=== PATIENT | male | born 1955 | race Caucasian/White ===

== ENCOUNTER 2019-09-06 22:11 | Inpatient (IN) | payer MEDICARE, OTHER ==
[~2019-09-06] VITALS: Ht 175.3 cm; Wt 75.3 kg
--- NOTE | 2019-09-06 22:18 | NUR ---
ER DOC AT BEDSIDE.
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
--- NOTE | 2019-09-06 23:00 | NUR ---
1:1 JOSE R SITTER AT BEDSIDE
--- NOTE | 2019-09-06 23:01 | NUR ---
PT TAKEN FOR CT SCAN.
[2019-09-06 23:10] LABS: BASOPHILS % (AUTO) 0.5 % (0.0-2.0); EOSINOPHILS # (AUTO) 0.1 K/uL (0.0-0.7); EOSINOPHILS % (AUTO) 0.8 % (0.0-7.0); HEMATOCRIT 44.9 % (36.7-47.1); LYMPHOCYTES # (AUTO) 1.3 K/uL (20.0-40.0); LYMPHOCYTES % (AUTO) 17.7 % (20.5-51.5); MEAN CORPUSCULAR HEMOGLOBIN 31.3 uug (23.8-33.4); MEAN CORPUSCULAR HGB CONC 33 g/dL (32.5-36.3); MEAN CORPUSCULAR VOLUME 93.6 fL (73.0-96.2); MONOCYTES # (AUTO) 0.6 K/uL (2.0-10.0); MONOCYTES % (AUTO) 8.5 % (0.0-11.0); NEUTROPHILS # (AUTO) 5.4 K/uL (1.8-8.9); NEUTROPHILS % (AUTO) 72.5 % (38.5-71.5); PLATELET COUNT (AUTO) 234 K/uL (152-348); RED BLOOD CELL COUNT(AUTO) 4.79 MIL/uL (4.06-5.63); WHITE BLOOD COUNT (AUTO) 7.4 K/uL (3.6-10.2)
--- NOTE | 2019-09-06 23:13 | NUR ---
PT BACK FROM CT .SITTER AND SISTER AT BEDSIDE.
[2019-09-06 23:19] LABS: CARBON DIOXIDE 28 mmol/L (21-32); CHLORIDE 106 mmol/L (98-107); CREATININE 0.9 mg/dL (0.6-1.3); GLUCOSE 95 mg/dL (74-106); POTASSIUM 3.5 mmol/L (3.5-5.1); UREA NITROGEN, BLOOD 15 mg/dL (7-18)
[2019-09-06 23:27] LABS: THYROID STIMULATING HORMONE 8.695 mIU/mL (0.358-3.740)
--- NOTE | 2019-09-07 00:10 | NUR ---
PAGED EPIC DOC FITNESS SERVICES MANAGER.
--- NOTE | 2019-09-07 01:13 | NUR ---
gave report to Lucio SCHAEFFER at Med Surg room 323.
--- NOTE | 2019-09-07 01:45 | NUR ---
Transported pt to med surg floor accompanied by sister.
[2019-09-07] MEDS ORDERED: MAGNESIUM HYDROXIDE 30 ML LIQUID UDC PO PRN (02:00)
[2019-09-07] MEDS ORDERED: BLOOD SUGAR DIAGNOSTIC 1 EACH STRIP VI ONE (02:00)
[2019-09-07] MEDS ORDERED: MAG HYDROX/AL HYDROX/SIMETH 30 ML LIQUID UDC PO PRN (02:00)
[2019-09-07 02:07] VITALS: BP 127/73
--- NOTE | 2019-09-07 03:01 | NUR ---
coping skills assessed; pt unable to evaluate due to AMS Addendum: 09/07/19 at 0302 by NICHOLE STEPHENSON RN Amended: Links added.
[2019-09-07 07:08] VITALS: BP 116/55
--- NOTE | 2019-09-07 07:30 | NUR ---
Received patient asleep with 1:1 sitter for safety. Patient shows no signs or symptoms of distress at this time. No signs or pain. Will continue to monitor.
[2019-09-07] MEDS: CLONAZEPAM 0.5 MG TABLET PO PRN ×3 (09:40→20:35)
--- NOTE | 2019-09-07 13:42 | NUR ---
Social Work Family Contact: jordan worker contacted patient's Dewey ([phone]) to gather collateral. This tag writer discussed treatment plan and discharge plan. PerDewey she is the DPOA and will send this tag writer the documentation.
--- NOTE | 2019-09-07 13:42 | NUR ---
Social Work Initial Discharge Plan: [place] [address]; . This publications writer spoke with Dionne ([phone]) who stated that she is unsure if they will accept patient, but will get back to this publications writer with an answer. Per patient's Dewey ([phone]) stated that she would want patient back there. farmworker brooder farm will work with the MD regarding appropriate discharge planning. farmworker brooder farm will form a safe and proper discharge.
--- NOTE | 2019-09-07 14:31 | NUR ---
Social Work Coordination of Care: soap worker spoke to wellness coordination Makenzie ([phone]) who stated that she is unsure if they will accept patient, but will get back to this editorial writer with an answer. Per Makenzie, she stated that Dionne the director will contact this editorial writer.
[2019-09-07] MEDS: ACETAMINOPHEN 325 MG TABLET PO PRN (14:41)
[2019-09-07 14:52] VITALS: BP 131/66
--- NOTE | 2019-09-07 17:54 | NUR ---
Patient will be transfer to MHU Room 145B, gave report to Arnulfo.
--- NOTE | 2019-09-07 18:50 | NUR ---
Received patient in stable condition accompanied by RN. Received report from MAKSIM Tong. Patient is alert and oriented to his name only. Oriented to the mental health unit, today's date, and time. Patient admitted on a 5150 hold for GD for increased agitation and unmanageable behavior from board and care. Patient's belongings removed and placed in contraband locker.
[2019-09-07 20:23] VITALS: BP 128/62
[2019-09-07] MEDS: SENNOSIDES/DOCUSATE SODIUM TABLET PO SCH (21:30)
[2019-09-08 08:30] VITALS: BP 116/51
[2019-09-08] MEDS: DIVALPROEX 250 MG TABLET.DR PO SCH ×2 (09:00→09:10)
[2019-09-08] MEDS: RIVASTIGMINE TARTRATE 1.5 MG CAPSULE PO SCH ×2 (09:10→20:04)
--- NOTE | 2019-09-08 09:59 | NUR ---
Social Work Coordination of Care: oven worker attempted to contact Dionne Director from [facility] ([phone]) and left a voicemail to return this writers call back.
--- NOTE | 2019-09-08 10:27 | NUR ---
Social Work Individual Therapy: youth accommodation support worker met with patient for brief counseling to address patients aggressive and combative behavior. Patient is not cooperative with this writer editor and is unable to have a meaningful conversation. Patient presents to be confused and disorganized, he constantly states "where am I" or "where is my room". However, at this moment patient has been calm and cooperative.
[2019-09-08] MEDS: DIVALPROEX SPRINKLE 125 MG CAP.SPRINK PO SCH ×2 (13:02→20:05)
[2019-09-08] MEDS: CLONAZEPAM 0.5 MG TABLET PO PRN ×2 (14:11→20:04)
--- NOTE | 2019-09-08 14:30 | NUR ---
Social Work Coordination of Care: fiber worker attempted to contact Dionne Director from [facility] ([phone]) stated that patient is welcomed back upon discharge.
[2019-09-08 15:22] VITALS: BP 105/60
[2019-09-08] MEDS: SENNOSIDES/DOCUSATE SODIUM TABLET PO SCH (20:06)
[2019-09-08 20:13] VITALS: BP 116/74
[2019-09-09] MEDS: TEMAZEPAM 7.5 MG CAPSULE PO PRN ×2 (00:15→22:23)
--- NOTE | 2019-09-09 06:27 | NUR ---
Received Pt sitting in jered chair in the hallway. Remains confused, disoriented, and disorganized and requires frequent redirection. Patient had some episodes of agitation and anxiety, Clonazepam 0.5mg given as ordered, minimally effective. Restoril 7.5mg administered for insomnia, which was only moderately effective. Pt awoke with sporadically restless and attempting to get out of bed despite safety instructions given by staff. Pt kept close to nursing station for direct observation. Denies pain, VS stable.
[2019-09-09 07:30] VITALS: BP 128/54
[2019-09-09] MEDS: RIVASTIGMINE TARTRATE 1.5 MG CAPSULE PO SCH ×2 (08:21→20:55)
[2019-09-09] MEDS: CLONAZEPAM 0.5 MG TABLET PO PRN (08:22)
[2019-09-09] MEDS: DIVALPROEX SPRINKLE 125 MG CAP.SPRINK PO SCH ×2 (08:22→20:55)
--- NOTE | 2019-09-09 15:55 | NUR ---
Received Pt sitting in jered chair in the hallway. Remains confused, disoriented, and disorganized and requires frequent redirection.patient enjoyed music group therapy, compliant with medication, patient calm and cooperative, visited by his
[2019-09-09 16:00] VITALS: BP 126/73
[2019-09-09 20:45] VITALS: BP 132/64
[2019-09-09] MEDS: SENNOSIDES/DOCUSATE SODIUM TABLET PO SCH (20:55)
--- NOTE | 2019-09-10 06:03 | NUR ---
GPS: Remains confused, disoriented, and disorganized and requires frequent redirection. compliant with medication, patient calm and cooperative, assisted with adl's.
--- NOTE | 2019-09-10 06:39 | NUR ---
slept 6:30 hrs through the night.
[2019-09-10 07:30] VITALS: BP 127/86
[2019-09-10] MEDS: RIVASTIGMINE TARTRATE 1.5 MG CAPSULE PO SCH ×2 (08:15→20:22)
[2019-09-10] MEDS: DIVALPROEX SPRINKLE 125 MG CAP.SPRINK PO SCH ×2 (08:15→20:22)
--- NOTE | 2019-09-10 12:57 | NUR ---
Received patient awake, alert and oriented to name only sitting in chair in dining room. Patient is disoriented and confused, requires redirection and reality orientation to time, date, and place. Patient is encouraged to verbalize his needs to staff, educated about impulse control.
--- NOTE | 2019-09-10 15:44 | NUR ---
Patient sitting in the hallway in chair, awake, alert and oriented to person only. Patient is laughing, speaking to himself and unknown others. When asked who patient is speaking to, he is unable to verbalize. patient provided with reality orientation. Will continue to monitor.
[2019-09-10 16:00] VITALS: BP 114/69
--- NOTE | 2019-09-10 19:00 | NUR ---
PATIENT ALERT BUT CONFUSED AND DISORIENTED. PATIENT ABLE TO ANSWER SIMPLE QUESTIONS, NO COMPLAINS OF PAIN AT THIS TIME. PATIENT WITH RESTLESS RISK FOR FALL AND INJURY, PATIENT SEATED AT CHAIR CLOSED TO NURSING STATION FOR FREQUENT VISUAL CHECK.
[2019-09-10 20:00] VITALS: BP 131/63
[2019-09-10] MEDS: SENNOSIDES/DOCUSATE SODIUM TABLET PO SCH (20:22)
--- NOTE | 2019-09-10 22:00 | NUR ---
PATIENT WIDE AWAKE UNABLE TO SLEEP, MEDICATED PATIENT WITH SLEEPING MEDS, ORDERED, CONT TO MONITOR.
[2019-09-10] MEDS: TEMAZEPAM 7.5 MG CAPSULE PO PRN (22:08)
--- NOTE | 2019-09-11 00:37 | NUR ---
PATIENT STILL AWAKE, PATIENT WAS PLACED BACK TO BED BUT CLIMBS OUT OF BED, RISK FOR FALL AND INJURY. PATIENT WAS KEPT CLEAN, DRY, OFFERED FOOD, AND TOILETING, BUT NOT EFFECTIVE PLACE BACK ON CHAIR, PLACE CLOSE TO NURSING STATION FOR VISUAL CHECK.
--- NOTE | 2019-09-11 06:57 | NUR ---
PATIENT AWAKE, SLEPT FOR FOUR HOURS ONLY, KEPT CLEAN AND DRY, CONT TO MONITOR.
[2019-09-11 07:30] VITALS: BP 126/63
[2019-09-11] MEDS: RIVASTIGMINE TARTRATE 1.5 MG CAPSULE PO SCH ×2 (08:00→20:14)
[2019-09-11] MEDS: DIVALPROEX SPRINKLE 125 MG CAP.SPRINK PO SCH ×2 (08:00→20:14)
--- NOTE | 2019-09-11 09:18 | NUR ---
Received patient awake, alert and oriented to name only sitting in chair. Patient is disoriented and confused, requires redirection and reality orientation to time, date, and place. Patient is seen grabbing at the air to no visible stimuli, seen smiling and occasionally whispering to himself. Patient is unable to maintain linear and logical conversation. He is unable to verbalize his needs to staff or participate with assessment. Patient is able to follow staff direction. Patient is medication adherent, no adverse reaction noted. Patient requires assistance with feeding, ADL's, self care, and ambulation. Will continue to monitor.
[2019-09-11] MEDS ORDERED: POLYVINYL ALCOHOL OPHT DROPS 15 ML BOTTLE LEFTEYE PRN (10:00)
--- NOTE | 2019-09-11 10:00 | NUR ---
Patient noted with watery discharge in left eye. No redness, swelling, or colored discharge in eye. Patient denies pain, discomfort, change in vision, or burning in eyes. MD notified, orders given for Artificial tears for cleansing of eye. Orders noted and carried out.
[2019-09-11 15:34] VITALS: BP 103/76
[2019-09-11 20:00] VITALS: BP 120/61
--- NOTE | 2019-09-11 20:00 | NUR ---
RECEIVED PATIENT IN THE HALLWAY SITTING IN A SHAHNAZ CHAIR. PATIENT IS NOTED CONFUSED, DISORGANIZED,PT IS UNABLE TO HAVE A MEANINGFUL CONVERSATION. HE IS NOTED CALM AND PLEASANT UPON APPROACHED. HE IS ABLE TO AMBULATE WITH STEADY GAIT; HOWEVER, PATIENT WONDERS INTO OTHER PATIENT'S ROOMS. HE IS ABLE TO COOPERATE WITH CARE AND ADLs. V/S STABLE AT THIS TIME. SAFETY AND FALL PRECAUTION IN PLACE. WILL CONTINUE TO MONITOR CLOSELY.
[2019-09-11] MEDS: SENNOSIDES/DOCUSATE SODIUM TABLET PO SCH (20:15)
[2019-09-11] MEDS ORDERED: ONDANSETRON ODT 4 MG TAB.RAPDIS SL PRN (22:00)
[2019-09-11] MEDS: TEMAZEPAM 7.5 MG CAPSULE PO PRN (22:07)
[2019-09-12] MEDS: RIVASTIGMINE TARTRATE 1.5 MG CAPSULE PO SCH ×2 (08:18→20:05)
[2019-09-12] MEDS: DIVALPROEX SPRINKLE 125 MG CAP.SPRINK PO SCH ×2 (08:19→20:05)
--- NOTE | 2019-09-12 08:24 | NUR ---
Social Work PC Hearing Notification: shearing shed worker contacted patient's Dewey ([phone]) and notified patients probable cause of hearing today through voicemail.
--- NOTE | 2019-09-12 09:42 | NUR ---
Social Work Individual Therapy: bulb farmworker met with patient for brief counseling to address patients aggressive and combative behavior. Patient has been calm and has been accepting care from the staff. However, patient continues to be disoriented and confused. Patient unable to have meaningful conversation with this investment underwriter. This investment underwriter will follow up with patient. .
--- NOTE | 2019-09-12 10:46 | NUR ---
Received patient awake, alert and oriented to person only sitting in chair. Patient requires frequent reality orientation and redirection for confusion and disorientation. Patient is unable to participate with interview with this life insurance underwriter, he is just able to nod his head "yes" or "no" to certain questions. Patient is seen RTIS, he is seen laughing to himself with no external stimuli. Patient requires assistance from staff with ADL's, self care, and feeding. Patient's safety maintained. Patient's AM medications were administered by this life insurance underwriter: Depakote Sprinkle 250 mg PO, Exelon 1.5 mg PO with no adverse reaction. Patient tolerated medication well.
--- NOTE | 2019-09-12 10:53 | NUR ---
Social Work Coordination of Care: aircraft worker was contacted by Becky Kidd ([phone]) who stated that she will access the patient on 09/13/2019.
[2019-09-12] MEDS: CLONAZEPAM 0.5 MG TABLET PO PRN ×2 (17:09→23:33)
--- NOTE | 2019-09-12 17:14 | NUR ---
called and spoke with Dr. Hebert regarding the discharges on both eyes , Orders made , read back orders and carried out, family made aware
[2019-09-12 19:50] VITALS: BP 113/58
[2019-09-12] MEDS: GENTAMICIN SULFATE OPHT DROP 5 ML BOTTLE EACHEYE SCH (20:05)
[2019-09-12] MEDS: SENNOSIDES/DOCUSATE SODIUM TABLET PO SCH (20:09)
[2019-09-12] MEDS: TEMAZEPAM 7.5 MG CAPSULE PO PRN (21:52)
--- NOTE | 2019-09-13 01:01 | NUR ---
Social Work Family Contact: leather worker spoke with patient's daughter Dewey ([phone]) who stated she is not sure with her father's placement. However, [facility] assessed patient and is accepting patient. This senior mortgage underwriter will search for nursing homes for patient.
--- NOTE | 2019-09-13 06:30 | NUR ---
Received Pt sitting in jerde chair in the hallway. Remains confused, disoriented, and disorganized and requires frequent redirection. Pt had an episode of agitation and anxiety, presents with insomnia. Restoril 7.5mg given as ordered, minimally effective. Pt remained with restlessness and anxiety, Klonopin 0.5mg administered which was effective. ADLs provided. Denies pain, VS stable.
[2019-09-13 07:30] VITALS: BP 123/59
[2019-09-13] MEDS: GENTAMICIN SULFATE OPHT DROP 5 ML BOTTLE EACHEYE SCH ×4 (08:44→21:10)
[2019-09-13] MEDS: RIVASTIGMINE TARTRATE 1.5 MG CAPSULE PO SCH ×2 (08:45→20:37)
[2019-09-13] MEDS: DIVALPROEX SPRINKLE 125 MG CAP.SPRINK PO SCH ×2 (08:45→20:38)
[2019-09-13] MEDS: CLONAZEPAM 0.5 MG TABLET PO PRN (10:13)
--- NOTE | 2019-09-13 10:53 | NUR ---
Social Work Individual Therapy: general production worker met with patient for brief counseling to address patients aggressive and combative behavior. Patient has not been combative with the staff. However, patient has been confused and is alert and oriented to self only. Patient is not able to engage in proper conservation with this telegraphic typewriter operator. Patient is only able to nod his head to "yes" or "no" questions, but it seems that patient is not cognitively receptive to understand and doesn't seem to comprehend. This telegraphic typewriter operator attempted to inform patient the importance to developing strategies when frustrated. Patient was not receptive.
[2019-09-13 16:00] VITALS: BP 110/46
[2019-09-13] MEDS ORDERED: QUETIAPINE FUMARATE 25 MG TABLET PO SCH (16:30)
[2019-09-13 20:00] VITALS: BP 134/77
[2019-09-13] MEDS: SENNOSIDES/DOCUSATE SODIUM TABLET PO SCH (20:38)
[2019-09-13] MEDS: ATORVASTATIN 10 MG TABLET PO SCH (20:38)
[2019-09-13] MEDS: QUETIAPINE FUMARATE 25 MG TABLET PO SCH (20:38)
--- NOTE | 2019-09-13 22:00 | NUR ---
received to care, up in jered chair for safety, appearing confused, talking to self, and disrobing. compliant with medications and bedtime snack, which had to be fed to him. he calmed down after taking his medications. as of 2199, he appears asleep, in bed. no distress noted. will continue to monitor closely.
--- NOTE | 2019-09-14 06:00 | NUR ---
slept well. continues to sleep. no distress noted.
--- NOTE | 2019-09-14 08:02 | NUR ---
Social Work Coordination of Care: plant and equipment worker faxed to Naty green from [facility] ([phone]). This curriculum writer sent patient's [facility] psychiatric notes and progress notes. Per Naty, she will notify this curriculum writer.
[2019-09-14] MEDS: RIVASTIGMINE TARTRATE 1.5 MG CAPSULE PO SCH ×2 (08:29→21:07)
[2019-09-14] MEDS: QUETIAPINE FUMARATE 25 MG TABLET PO SCH ×2 (08:29→21:08)
[2019-09-14] MEDS: GENTAMICIN SULFATE OPHT DROP 5 ML BOTTLE EACHEYE SCH ×4 (08:29→21:30)
[2019-09-14] MEDS: CLONAZEPAM 0.5 MG TABLET PO PRN ×2 (08:29→16:07)
[2019-09-14] MEDS: DIVALPROEX SPRINKLE 125 MG CAP.SPRINK PO SCH ×2 (08:29→21:07)
--- NOTE | 2019-09-14 13:13 | NUR ---
Social Work Discharge Plan: warm in worker spoke with Stevie ([phone]) and he stated that patient is accepted.
--- NOTE | 2019-09-14 13:14 | NUR ---
Social Work Family Contact: pitch worker spoke with Dewey ([phone]) and stated that patient is accepted to [facility]. Per Dewey, she agreed.
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
[2019-09-14 16:37] VITALS: BP 115/69
[2019-09-14 20:48] VITALS: BP 125/70
[2019-09-14] MEDS: ATORVASTATIN 10 MG TABLET PO SCH (21:07)
[2019-09-14] MEDS: SENNOSIDES/DOCUSATE SODIUM TABLET PO SCH (21:12)
--- NOTE | 2019-09-14 22:00 | NUR ---
received to care, up in jered chair for safety, appearing confused, talking to self, and disrobing. compliant with medications and bedtime snack, which had to be fed to him. he calmed down after taking his medications. as of 0, he remains awake. no distress noted. will continue to monitor closely.
[2019-09-14] MEDS: TEMAZEPAM 7.5 MG CAPSULE PO PRN (22:05)
[2019-09-14] MEDS: ACETAMINOPHEN 325 MG TABLET PO PRN (22:05)
--- NOTE | 2019-09-14 22:05 | NUR ---
PRN restoril, given for insomnia
--- NOTE | 2019-09-15 00:30 | NUR ---
appears to be asleep, in bed. no distress noted.
--- NOTE | 2019-09-15 06:00 | NUR ---
slept 4.0 hours. continues to sleep. no distress noted.
[2019-09-15 07:30] VITALS: BP 146/60
[2019-09-15] MEDS: RIVASTIGMINE TARTRATE 1.5 MG CAPSULE PO SCH ×2 (09:20→21:24)
[2019-09-15] MEDS: DIVALPROEX SPRINKLE 125 MG CAP.SPRINK PO SCH ×2 (09:21→21:25)
[2019-09-15] MEDS: GENTAMICIN SULFATE OPHT DROP 5 ML BOTTLE EACHEYE SCH ×3 (09:21→17:59)
--- NOTE | 2019-09-15 13:05 | NUR ---
Social Work Family Contact: health care social worker spoke with patient's Dewey ([phone]) and discussed patient's discharge plan. Per Dewey, she accepted for [facility].
--- NOTE | 2019-09-15 14:43 | NUR ---
lawn maintenance worker met with patient for brief individual therapy regarding stress management. Patient presents combative and aggressive behavior. Patient presents with delusional thought content. lawn maintenance worker increased awareness surrounding positive reinforcement. Patient was unable to have a meaningful conversation with this radio news writer. Patient was experiencing hallucinations and stated, come here and was grabbing air. Patient was responding to internal stimuli. *No group being held due to coronavirus precautions*
[2019-09-15 15:33] VITALS: BP 117/88
[2019-09-15 21:20] VITALS: BP 155/69
[2019-09-15] MEDS: QUETIAPINE FUMARATE 25 MG TABLET PO SCH (21:25)
[2019-09-15] MEDS: ATORVASTATIN 10 MG TABLET PO SCH (21:25)
[2019-09-15] MEDS: SENNOSIDES/DOCUSATE SODIUM TABLET PO SCH (21:25)
[2019-09-15] MEDS: TEMAZEPAM 7.5 MG CAPSULE PO PRN (22:54)
--- NOTE | 2019-09-15 22:54 | NUR ---
remains awake, and restless. PRN restoril was given, at this time.
[2019-09-16] MEDS: CLONAZEPAM 0.5 MG TABLET PO PRN ×2 (00:02→19:55)
--- NOTE | 2019-09-16 00:03 | NUR ---
PRN klonopin given for anxiety
--- NOTE | 2019-09-16 00:30 | NUR ---
assisted to bed at 015. as of 0030, he appears asleep. no distress noted.
--- NOTE | 2019-09-16 01:22 | NUR ---
received to care, up in jered chair for safety, appearing confused, talking to self, and disrobing. compliant with medications and bedtime snack, which had to be fed to him. he calmed down after taking his medications. as of 2199, he remains awake. no distress noted. will continue to monitor closely. Addendum: 09/16/19 at 0126 by ERLINDA PAREDES LVN error wrong time documented.
--- NOTE | 2019-09-16 06:00 | NUR ---
slept 4.5 hours total. continues to sleep. no distress noted.
--- NOTE | 2019-09-16 06:30 | NUR ---
pt is now awake. assisted up in jered chair, for safety. currently at nurses station. remains calm. no distress noted.
[2019-09-16 07:30] VITALS: BP 133/60
[2019-09-16] MEDS: RIVASTIGMINE TARTRATE 1.5 MG CAPSULE PO SCH ×2 (08:45→20:01)
[2019-09-16] MEDS: QUETIAPINE FUMARATE 25 MG TABLET PO SCH ×2 (08:45→20:02)
[2019-09-16] MEDS: DIVALPROEX SPRINKLE 125 MG CAP.SPRINK PO SCH ×2 (08:48→20:01)
[2019-09-16 15:15] VITALS: BP 117/69
[2019-09-16] MEDS: ATORVASTATIN 10 MG TABLET PO SCH (20:01)
[2019-09-16] MEDS: SENNOSIDES/DOCUSATE SODIUM TABLET PO SCH (20:03)
[2019-09-16 20:25] VITALS: BP 127/78
--- NOTE | 2019-09-17 06:53 | NUR ---
Remain confused but cooperative with meds and care. slept 4.5 hours total. up in jered chair near the nursing station for safety. no distress noted.
[2019-09-17 07:30] VITALS: BP 129/71
[2019-09-17] MEDS: DIVALPROEX SPRINKLE 125 MG CAP.SPRINK PO SCH ×2 (08:32→20:04)
[2019-09-17] MEDS: RIVASTIGMINE TARTRATE 1.5 MG CAPSULE PO SCH ×2 (08:32→20:04)
[2019-09-17] MEDS: CLONAZEPAM 0.5 MG TABLET PO PRN ×3 (08:32→23:35)
[2019-09-17] MEDS: QUETIAPINE FUMARATE 25 MG TABLET PO SCH ×2 (08:32→20:04)
--- NOTE | 2019-09-17 12:03 | NUR ---
Pt received resting in bed, assisted to Zina-chair, appears anxious pulling at clothes and banging fist on furniture. Pt confused but compliant with medication administration, taking pills crushed with food. Klonopin administered for anxiety as ordered PRN. All safety and comfort needs attended to, will continue to monitor for safety.
[2019-09-17 12:45] VITALS: BP 111/55
[2019-09-17 15:52] VITALS: BP 119/63
[2019-09-17] MEDS: SENNOSIDES/DOCUSATE SODIUM TABLET PO SCH (20:04)
[2019-09-17] MEDS: ATORVASTATIN 10 MG TABLET PO SCH (20:04)
[2019-09-17 21:01] VITALS: BP_SYST 103; BP_SYST 132; BP_DIAS 53; BP_DIAS 80
[2019-09-17] MEDS: TEMAZEPAM 7.5 MG CAPSULE PO PRN (22:04)
--- NOTE | 2019-09-18 00:05 | NUR ---
GPS: Remains anxious and restless. Frequently trying to get oob unassisted. Has poor safety awareness. Fall precautions observed. Sleeping pill given 2 hrs.ago ineffective. Klonopin 0.5mg given PO for anxiety. Re-directed and re-assured frequently. Quiet environment provided to facilitate sleep.
[2019-09-18 07:30] VITALS: BP 123/68
[2019-09-18] MEDS: DIVALPROEX SPRINKLE 125 MG CAP.SPRINK PO SCH ×2 (09:31→21:24)
[2019-09-18] MEDS: RIVASTIGMINE TARTRATE 1.5 MG CAPSULE PO SCH ×2 (09:31→21:24)
[2019-09-18] MEDS: QUETIAPINE FUMARATE 25 MG TABLET PO SCH ×2 (09:31→21:24)
--- NOTE | 2019-09-18 15:12 | NUR ---
Social Work Family Contact: retail salesworker contacted patient's Dewey ([phone]) and she was agreeable with [facility].
[2019-09-18 16:00] VITALS: BP 127/66
[2019-09-18 20:00] VITALS: BP 139/68
[2019-09-18] MEDS: CLONAZEPAM 0.5 MG TABLET PO PRN (20:22)
[2019-09-18] MEDS: ATORVASTATIN 10 MG TABLET PO SCH (21:24)
[2019-09-18] MEDS: SENNOSIDES/DOCUSATE SODIUM TABLET PO SCH (21:24)
[2019-09-18] MEDS: ACETAMINOPHEN 325 MG TABLET PO PRN (22:46)
[2019-09-18] MEDS: TEMAZEPAM 7.5 MG CAPSULE PO PRN (22:46)
--- NOTE | 2019-09-19 07:04 | NUR ---
received to care, last night, up in jered chair for safety, appearing confused, talking to self, but compliant with medications and bedtime snack. PRN klonopin was given at 2021, for restlessness, which was minimally effective. as of 2199, he remains awake. no distress noted. will continue to monitor closely.
--- NOTE | 2019-09-19 07:05 | NUR ---
PRN restoril given at 2246 for insomnia. slept 5 yours total. continues to sleep. no distress noted.
[2019-09-19 07:30] VITALS: BP 129/55
--- NOTE | 2019-09-19 08:28 | NUR ---
Social Work Firearms Report: Spanish Literature Professor completed and submitted a [employer] firearms report for 5250 grave disability certification. A copy of report has been placed in patient chart.
--- NOTE | 2019-09-19 08:28 | NUR ---
Social Work Discharge Note: Patient will be discharged to [facility] facility, [facility] [place] [address]; ) via Ambulance transportation at 12PM. Engineering Geologist [facility] with [facility] at [facility]; ([phone]), who stated patient will be accepted back at facility today. Patient spoke with patients Gal ([phone]) who was agreeable with patients plan of discharge. Patient is alert and oriented x1-2 and is unable to plan for self-care. Patient denies any suicidal or homicidal ideations. Patient is aware and agreeable with discharge plans. Patient will continue to follow-up with Psychiatrist Dr. Sevilla and Wire Coiler Machine Operator Dr. Betancourt at [facility] [id number] [place] [id number]; . Patient presents with euthymic mood and congruent affect.
[2019-09-19] MEDS: QUETIAPINE FUMARATE 25 MG TABLET PO SCH (09:30)
[2019-09-19] MEDS: RIVASTIGMINE TARTRATE 1.5 MG CAPSULE PO SCH (09:30)
[2019-09-19] MEDS: DIVALPROEX SPRINKLE 125 MG CAP.SPRINK PO SCH (09:30)
--- NOTE | 2019-09-19 12:15 | NUR ---
GPS: Nursing Notes: Discharge Notes: Patient awake and responding to his name, compliant with his medications, needs assistance with ADL's, ambulatory with assistance, denies any SI/HI, denies any AH/VH, denies any pain or discomfort, denies any SOB, discharge to [facility] [address] [place] [address]; [address] Dr. Sevilla (psychiatrist) and Dr. Betancourt (loss prevention coordinator) will follow up at the facility for aftercare, report given to Brianna RN loan processing supervisor, transported via ambulance to facility. Patient's - Dewey was notify of discharge by social media campaign manager.
== END 2019-09-19 12:15 | DRG 885 ==
LOC: ER 22:14 → GPSOV3 09-07 01:34 → GPS 09-07 17:55
PROVIDERS: ADMIT Psychiatry & Neurology Psychiatry; ATTEND Internal Medicine
DX: F39 Unspecified mood [affective] disorder (principal); D68.59 Other primary thrombophilia; G30.0 Alzheimer's disease with early onset; F02.80 Dementia in other diseases classified elsewhere, unspecified severity, without behavioral disturbance, psychotic disturbance, mood disturbance, and anxiety; F41.9 Anxiety disorder, unspecified; E78.5 Hyperlipidemia, unspecified; Z74.09 Other reduced mobility; M62.81 Muscle weakness (generalized); R26.81 Unsteadiness on feet; Z91.81 History of falling
CPT/HCPCS: 36415; 70450; 80164; 84443; 85025; 93005; J3490

== ENCOUNTER 2020-10-03 19:46 | Inpatient (IN) | payer MEDICARE, OTHER ==
[~2020-10-03] VITALS: Ht 172.7 cm; Wt 66.8 kg
[~2020-10-03 19:46] MED LIST: SENN-22 PO
[2020-10-03] MEDS ORDERED: IV NORMAL SALINE 1000 ML BAG IV ONE (20:00)
--- NOTE | 2020-10-03 20:00 | NUR ---
see by MD , PATIENT IS DROWSY , UNABLE TO FOLLOW , IV STARTED 20 GA RIGHT FOREARM
--- NOTE | 2020-10-03 20:00 | NUR ---
PATIENT HAS A LOT SCATCHES ON ARMS AND LEGS DUE TO PATIENT CONSTANT SCATCHING . UNABLE TO INSERT AND COLLECT URINE PATIENT IS COMBATIVE
[2020-10-03] MEDS ORDERED: ASCO500C18 PO (20:03)
[2020-10-03] MEDS ORDERED: DIVA250T4 PO (20:03)
[2020-10-03] MEDS ORDERED: vitamin d3 PO (20:03)
[2020-10-03] MEDS ORDERED: MELA5TAB PO (20:03)
[2020-10-03] MEDS ORDERED: ACET-2154 PO (20:03)
[2020-10-03] MEDS ORDERED: QUET25TA PO (20:03)
[2020-10-03] MEDS ORDERED: ATOR10TA PO (20:03)
[2020-10-03] MEDS ORDERED: DONE5TAB34 PO (20:03)
--- NOTE | 2020-10-03 20:15 | NUR ---
cxr done and lab drawn
[2020-10-03 20:22] LABS: CREATININE 1.2 mg/dL (0.6-1.3); POTASSIUM 4.9 mmol/L (3.5-5.1)
[2020-10-03 20:24] LABS: BASOPHILS % (AUTO) 0.4 % (0.0-2.0); EOSINOPHILS # (AUTO) 0.6 K/uL (0.0-0.7); EOSINOPHILS % (AUTO) 5.8 % (0.0-7.0); HEMATOCRIT 39.9 % (36.7-47.1); HEMOGLOBIN 13.3 g/dL (12.5-16.3); LYMPHOCYTES # (AUTO) 1.8 K/uL (20.0-40.0); LYMPHOCYTES % (AUTO) 18.8 % (20.5-51.5); MEAN CORPUSCULAR HEMOGLOBIN 30.1 uug (23.8-33.4); MEAN CORPUSCULAR HGB CONC 33 g/dL (32.5-36.3); MEAN CORPUSCULAR VOLUME 90.3 fL (73.0-96.2); MONOCYTES % (AUTO) 10.8 % (0.0-11.0); NEUTROPHILS # (AUTO) 6.1 K/uL (1.8-8.9); NEUTROPHILS % (AUTO) 64.2 % (38.5-71.5); PLATELET COUNT (AUTO) 308 K/uL (152-348); RED BLOOD CELL COUNT(AUTO) 4.42 MIL/uL (4.06-5.63); WHITE BLOOD COUNT (AUTO) 9.6 K/uL (3.6-10.2)
[2020-10-03 20:27] LABS: BILIRUBIN,DIRECT 0.1 mg/dL (0.0-0.2); BILIRUBIN,TOTAL 0.2 mg/dL (0.2-1.0); TOTAL PROTEIN, SERUM 7.3 g/dL (6.4-8.2)
[2020-10-03] MEDS ORDERED: diphenhydrAMINE 50 MG/1 ML VIAL IV ONE (20:45)
[2020-10-03] MEDS ORDERED: diphenhydrAMINE 50 MG/1 ML VIAL ONE (20:58)
[2020-10-03] MEDS ORDERED: MAGNESIUM HYDROXIDE 30 ML LIQUID UDC PO PRN (21:00)
[2020-10-03] MEDS ORDERED: ACETAMINOPHEN 325 MG TABLET PO PRN (21:00)
[2020-10-03] MEDS ORDERED: ONDANSETRON 4 MG/2 ML VIAL IV PRN (21:00)
[2020-10-03] MEDS ORDERED: Z GUARD REMEDY PASTE 57 GM TUBE TOP PRN (21:00)
--- NOTE | 2020-10-03 21:35 | NUR ---
report given to ivelisse , hx medications given and status of the patient , patient is arousable , combative , unable to insert turner catheter , floor nurse aware
--- NOTE | 2020-10-03 21:50 | NUR ---
Received patient from the Emergency Department admitted by Dr. Betancourt for failure to thrive. Patient is drowsy, able to open eyes and responds to light touch. Patient is confused. No s/s of acute distress at this time. Pt on RA, no s/s of SOB. Patient noted to have small pin point rash and scabs throughout body and noted to be scratching all over, will notify MD. Safety measures in place, bed locked and in low position. Isolation precautions in place until further notice.
[2020-10-03 22:00] VITALS: BP 127/66
--- NOTE | 2020-10-03 22:43 | NUR ---
Notified Dr. Betancourt of patient scratching and body rash appearance. New orders for Benadryl 25mg PO Q6hrs PRN. Will administer medication per order and continue to monitor.
[2020-10-03] MEDS: ATORVASTATIN 10 MG TABLET PO SCH (22:55)
[2020-10-03] MEDS: DONEPEZIL 5 MG TABLET PO SCH (22:55)
[2020-10-03] MEDS: IV 1/2NS 1000 ML 1,000 ML IV PRN (22:57)
[2020-10-04 04:15] VITALS: BP 129/66
[2020-10-04 06:31] LABS: BASOPHILS % (AUTO) 0.3 % (0.0-2.0); EOSINOPHILS # (AUTO) 0.8 K/uL (0.0-0.7); EOSINOPHILS % (AUTO) 8.1 % (0.0-7.0); HEMATOCRIT 37.4 % (36.7-47.1); HEMOGLOBIN 12.4 g/dL (12.5-16.3); LYMPHOCYTES # (AUTO) 1.8 K/uL (20.0-40.0); LYMPHOCYTES % (AUTO) 19.1 % (20.5-51.5); MEAN CORPUSCULAR HEMOGLOBIN 30.1 uug (23.8-33.4); MEAN CORPUSCULAR HGB CONC 33 g/dL (32.5-36.3); MEAN CORPUSCULAR VOLUME 90.6 fL (73.0-96.2); MONOCYTES # (AUTO) 0.8 K/uL (2.0-10.0); MONOCYTES % (AUTO) 9.1 % (0.0-11.0); NEUTROPHILS # (AUTO) 5.9 K/uL (1.8-8.9); NEUTROPHILS % (AUTO) 63.4 % (38.5-71.5); PLATELET COUNT (AUTO) 258 K/uL (152-348); RED BLOOD CELL COUNT(AUTO) 4.13 MIL/uL (4.06-5.63); WHITE BLOOD COUNT (AUTO) 9.2 K/uL (3.6-10.2)
[2020-10-04 06:53] LABS: CREATININE 0.9 mg/dL (0.6-1.3); MAGNESIUM 2.2 mg/dL (1.8-2.4); PHOSPHOROUS 3.5 mg/dL (2.5-4.9); POTASSIUM 3.5 mmol/L (3.5-5.1)
--- NOTE | 2020-10-04 07:30 | NUR ---
PATIENT RECEIVED WITH EYES CLOSED IN BED. PATIENT IS EASILY AROUSABLE TO NAME AND LIGHT TOUCH. PINPOINT SCABS NOTED THROUGHOUT THE BODY. PATIENT IS NOT SCRATCHING AT THIS TIME. PATIENT'S EXTREMITIES ARE RIGID, BUT NOT CONTRACTED. PATIENT'S IV IN THE LEFT FOREARM IS PATENT WITH 1/2 NS RUNNING AT 75ML/H ORDERED. NO REDNESS OR SWELLING NOTED. CALL LIGHT WITHIN EASY REACH.
[2020-10-04] MEDS: QUETIAPINE FUMARATE 25 MG TABLET PO SCH ×2 (08:16→16:27)
[2020-10-04] MEDS: DIVALPROEX 250 MG TABLET.DR PO SCH ×2 (08:16→16:27)
[2020-10-04] MEDS: ASCORBIC ACID 500 MG TABLET PO SCH ×2 (08:16→16:27)
[2020-10-04 11:32] VITALS: BP 116/58
--- NOTE | 2020-10-04 12:46 | NUR ---
WOUND CARE CONSULT: PT NOTED TO BE SCRATCHING HIS SKIN AND NOTED TO HAVE MULTIPLE PINPOINT SCABS AND SCRATCH PARISI ALL OVER WELL LESIONS BETWEEN FINGERS, PRESENT ON ADMISSION. DR GONZALEZ NOTIFIED OF ABOVE ASSESSMENT. PT IS INCONTINENT. DISCUSSED SKIN PROTECTION WITH NURSING STAFF AND DRY ROLLER. IN AGREEMENT WITH PLAN OF CARE. Addendum: 10/04/20 at 1253 by LUKE ESTEBAN RN CORRECTION: DR KEY WAS NOTIFIED OF PT SKIN ASSESSMENT FINDINGS.
[2020-10-04] MEDS: IV 1/2NS 1000 ML 1,000 ML IV PRN (12:52)
[2020-10-04] MEDS: HYDROCODONE/APAP 5-325MG TABLET PO PRN (12:53)
[2020-10-04] MEDS: diphenhydrAMINE 25 MG CAP PO PRN ×2 (12:54→22:39)
--- NOTE | 2020-10-04 13:00 | NUR ---
PATIENT NOTED TO BE SCRATCHING AND GIVEN BENADRYL ORDERED. MD NOTIFIED WITH NO NEW ORDERS AT THIS TIME. CONTINUES TO BE CONFUSED AND ANSWERS INTERMITTENTLY WHEN ASKED QUESTIONS. PATIENT VERY RESTLESS AND IS GRASPING SIDES AND LEGS. GIVEN HYDROCODONE ORDERED. WILL CONTINUE TO PROVIDE REDIRECTION AND CONTINUE TO MONITOR. CALL LIGHT WITHIN EASY REACH.
[2020-10-04 16:00] VITALS: BP 102/49
--- NOTE | 2020-10-04 19:00 | NUR ---
PATIENT RESTING IN BED WITH EYES CLOSED. IS NOT ITCHING AT THIS TIME AND IS SHOWING NO SIGNS OF DISCOMFORTS. WILL CONTINUE TO MONITOR.
[2020-10-04] MEDS ORDERED: IVERMECTIN 3 MG TABLET PO ONE (19:30)
--- NOTE | 2020-10-04 19:45 | NUR ---
RECEIVED PT IN BED, RESTING, AROUSABLE TO LIGHT TOUCH. ABLE TO FOLLOW SIMPLE COMMANDS. NO S/S OF RESPIRATORY DISTRESS, NO PAIN OR DISCOMFORT NOTED. PT ON CONTACT ISOLATION. SAFETY MEASURES INITIATED, WILL CONTINUE TO MONITOR.
[2020-10-04] MEDS ORDERED: PERMETHRIN 5% CREAM 60 GM TUBE TP SCH (20:00)
[2020-10-04] MEDS ORDERED: IVERMECTIN 3 MG TABLET PO SCH (20:00)
--- NOTE | 2020-10-04 20:00 | NUR ---
ELIMITE CREAM AND IVERMECTIN TABLET NOT AVAILABLE. DR. KEY AND PHARMACY CONCURRED WITH EACH OTHER TO WAIT UNTIL RESULT OF SCRAPING IS BACK.
[2020-10-04 20:18] VITALS: BP 125/66
[2020-10-04] MEDS ORDERED: MELATONIN 3 MG TABLET ONE ×2 (22:10→22:26)
[2020-10-04] MEDS: DONEPEZIL 5 MG TABLET PO SCH (22:27)
[2020-10-04] MEDS: MELATONIN 3 MG TABLET PO SCH (22:27)
[2020-10-04] MEDS: ATORVASTATIN 10 MG TABLET PO SCH (22:28)
[2020-10-05] MEDS: IV 1/2NS 1000 ML 1,000 ML IV PRN ×2 (03:00→17:09)
[2020-10-05 04:18] VITALS: BP 124/66
--- NOTE | 2020-10-05 06:11 | NUR ---
PT IN BED, AWAKE. REQUIRES FREQUENT ORIENTATION BUT ABLE TO FOLLOW SIMPLE COMMANDS. NO S/S OF RESPIRATORY DISTRESS, NO DISCOMFORT OR PAIN NOTED. IVF INFUSING WELL. POSITIONED COMFORTABLY IN BED. SAFETY MEASURES MAINTAINED AT ALL TIMES. ALL NEEDS ATTENDED.
--- NOTE | 2020-10-05 07:30 | NUR ---
PATIENT RECEIVED IN BED WITH EYES OPEN. UPON CHECKING, PATIENT HAS PULLED HIS IV OUT AND A NEW IV 20G WAS PLACED ON THE LEFT HAND AND REINFORCED SO THAT PATIENT WILL NOT PULL IT OUT. IVF 1/2 NS NOW RUNNING AT 75 ML/H ORDERED. RE-POSITIONED IN BED AND MADE COMFORTABLE WITH NO ITCHING/SCRATCHING AT THIS TIME. CALL LIGHT IS WITHIN EASY REACH. WILL CONTINUE TO OBSERVE.
--- NOTE | 2020-10-05 07:30 | NUR ---
0730 PATIENT RESTING IN BED WITH EYES OPEN. PATIENT VERBALIZES HER ANXIETY REGARDING HER HOSPITALIZATION. PATIENT REFUSED ATIVAN AT THIS TIME. LISTENED TO PATIENT'S WORRIES AND REASSURED HER BY EDUCATING HER ON PROCEDURES AND PROVIDING COMFORT CARE. PATIENT VERBALIZED THAT SHE HAS NO PAIN AT THIS TIME. PATIENT'S SKIN REMAINS INTACT. TELEMETRY IS SINUS RHYTHM AT THIS TIME. PATIENT HAS IVF RUNNING ORDERED AT 75 ML/H. PERSONAL BELONGINGS AND CALL LIGHT WITHIN EASY REACH. WILL CONTINUE TO MONITOR. Addendum: 10/05/20 at 1616 by CAITIE QUEVEDO RN PLEASE DISREGARD. WRONG PATIENT.
[2020-10-05] MEDS: DIVALPROEX 250 MG TABLET.DR PO SCH ×2 (08:03→17:09)
[2020-10-05] MEDS: ASCORBIC ACID 500 MG TABLET PO SCH ×2 (08:03→17:09)
[2020-10-05] MEDS: QUETIAPINE FUMARATE 25 MG TABLET PO SCH ×2 (08:03→17:09)
--- NOTE | 2020-10-05 10:30 | NUR ---
PATIENT IS SCRATCHING HIS BODY AND BENADRYL GIVEN ORDERED.
[2020-10-05] MEDS: diphenhydrAMINE 25 MG CAP PO PRN ×3 (10:34→23:05)
[2020-10-05 12:41] VITALS: BP 95/50
[2020-10-05] MEDS: HYDROCODONE/APAP 5-325MG TABLET PO PRN (15:05)
[2020-10-05 16:57] VITALS: BP 106/68
[2020-10-05] MEDS: ENSURE ENLIVE (VAN) 240 ML LIQUID PO SCH (17:35)
--- NOTE | 2020-10-05 19:00 | NUR ---
PATIENT IS RESTING IN BED WITH EYES CLOSED. IVF RUNNING ORDERED. PATIENT CONTINUES TO BE CONFUSED AND REQUIRES REDIRECTION.
--- NOTE | 2020-10-05 19:35 | NUR ---
Received pt in bed, awake and able to follow simple commands, cooperative with care although requires frequent redirection. No s/s of respiratory distress, no pain or discomfort noted. IVF infusing well on left hand, wrapped with kerlix. Repositioned in bed comfortably, safety measures initiated, call light within reach, will continue to monitor.
[2020-10-05 20:09] VITALS: BP 104/52
[2020-10-05 20:12] VITALS: BP 167/87
[2020-10-05] MEDS: MELATONIN 3 MG TABLET PO SCH (20:48)
[2020-10-05] MEDS: ATORVASTATIN 10 MG TABLET PO SCH (20:48)
[2020-10-05] MEDS: DONEPEZIL 5 MG TABLET PO SCH (20:48)
[2020-10-06 04:09] VITALS: BP 134/58
[2020-10-06] MEDS: diphenhydrAMINE 25 MG CAP PO PRN ×3 (05:24→21:17)
--- NOTE | 2020-10-06 06:13 | NUR ---
Pt in bed, awake, cooperative with care, able to follow simple commands but requires frequent redirection. No s/s of respiratory distress, no pain or discomfort noted. IVF infusing well. Safety measures maintained at all times, call light within reach, all needs attended.
[2020-10-06] MEDS: ENSURE ENLIVE (VAN) 240 ML LIQUID PO SCH ×2 (08:35→17:28)
[2020-10-06] MEDS: ASCORBIC ACID 500 MG TABLET PO SCH ×2 (08:35→16:18)
[2020-10-06] MEDS: QUETIAPINE FUMARATE 25 MG TABLET PO SCH ×2 (08:35→16:17)
[2020-10-06] MEDS: IV 1/2NS 1000 ML 1,000 ML IV PRN ×2 (08:36→21:04)
[2020-10-06] MEDS: DIVALPROEX 250 MG TABLET.DR PO SCH ×2 (09:36→16:17)
[2020-10-06 11:35] VITALS: BP 117/51
[2020-10-06 15:58] VITALS: BP 103/50
--- NOTE | 2020-10-06 19:17 | NUR ---
Received pt in bed, resting, able to follow simple commands. No s/s of respiratory distress, no pain or discomfort noted. IVF infusing well on left hand. Repositioned in bed comfortably, safety measures initiated, call light within reach, will continue to monitor.
--- NOTE | 2020-10-06 19:21 | NUR ---
Patient AOx1 but obeys command. on room air. no signs of acute distress. compliant with medication and care. safety and comfort measures provided. bed locked and in low position. will endorse to incoming shift.
[2020-10-06 20:55] VITALS: BP 99/54
[2020-10-06] MEDS: DONEPEZIL 5 MG TABLET PO SCH (21:17)
[2020-10-06] MEDS: ATORVASTATIN 10 MG TABLET PO SCH (21:17)
[2020-10-06] MEDS: MELATONIN 3 MG TABLET PO SCH (21:17)
[2020-10-07 05:38] VITALS: BP 134/78
[2020-10-07] MEDS: diphenhydrAMINE 25 MG CAP PO PRN (05:52)
--- NOTE | 2020-10-07 06:07 | NUR ---
Pt in bed, awake, cooperative with care, able to follow simple commands No s/s of respiratory distress, no pain or discomfort noted. IVF infusing well on left forearm. Safety measures maintained at all times, call light within reach, all needs attended. Psych consult today.
--- NOTE | 2020-10-07 07:40 | NUR ---
Pt in bed resting. Pt is on room air saturating at 96%, AOx 1 but is cooperative with care and follows command. safety measures in place call light in reach will continue to monitor.
[2020-10-07 08:12] VITALS: BP 124/52
[2020-10-07] MEDS: QUETIAPINE FUMARATE 25 MG TABLET PO SCH ×2 (09:01→16:58)
[2020-10-07] MEDS: DIVALPROEX 250 MG TABLET.DR PO SCH ×2 (09:02→16:58)
[2020-10-07] MEDS: ASCORBIC ACID 500 MG TABLET PO SCH ×2 (09:02→16:58)
[2020-10-07] MEDS: ENSURE ENLIVE (VAN) 240 ML LIQUID PO SCH ×2 (09:02→16:58)
[2020-10-07 09:58] LABS: POTASSIUM 4.5 mmol/L (3.5-5.1)
[2020-10-07 10:03] LABS: BASOPHILS % (AUTO) 0.5 % (0.0-2.0); EOSINOPHILS # (AUTO) 0.6 K/uL (0.0-0.7); EOSINOPHILS % (AUTO) 8.2 % (0.0-7.0); HEMATOCRIT 39.1 % (36.7-47.1); HEMOGLOBIN 13.2 g/dL (12.5-16.3); LYMPHOCYTES # (AUTO) 1.5 K/uL (20.0-40.0); MEAN CORPUSCULAR HEMOGLOBIN 30.3 uug (23.8-33.4); MEAN CORPUSCULAR HGB CONC 34 g/dL (32.5-36.3); MEAN CORPUSCULAR VOLUME 90.1 fL (73.0-96.2); MONOCYTES # (AUTO) 0.7 K/uL (2.0-10.0); MONOCYTES % (AUTO) 10.1 % (0.0-11.0); NEUTROPHILS # (AUTO) 4.4 K/uL (1.8-8.9); NEUTROPHILS % (AUTO) 61.2 % (38.5-71.5); PLATELET COUNT (AUTO) 282 K/uL (152-348); RED BLOOD CELL COUNT(AUTO) 4.34 MIL/uL (4.06-5.63); WHITE BLOOD COUNT (AUTO) 7.3 K/uL (3.6-10.2)
[2020-10-07 10:59] VITALS: BP 120/57
[2020-10-07] MEDS ORDERED: LORAZEPAM 1 MG TABLET PO PRN (12:00)
[2020-10-07 15:28] VITALS: BP 111/49
[2020-10-07] MEDS: IV 1/2NS 1000 ML 1,000 ML IV PRN (15:46)
--- NOTE | 2020-10-07 16:15 | NUR ---
[facility] called to report pt is negative for Scabies. Notified
--- NOTE | 2020-10-07 19:00 | NUR ---
EOSR Pt in bed resting. Pt is on room air saturating at 98%, A&Ox 1 but is cooperative with care and follows command. Meds given as ordered and tolerated well. safety measures in place call light in reach bed in lowest position, Will endorse to oncoming nurse
--- NOTE | 2020-10-07 19:30 | NUR ---
RECEIVED PT IN NO ACUTE DISTRESS. IV INTACT. PT ALERT , AWAKE AND ORIENTEDX1. SAFETY AND COMFORT PROVIDED. WILL CONTINUE TO MONITOR.
--- NOTE | 2020-10-07 20:12 | NUR ---
CALLED TO CLARIFY IF PT WILL BE DISCHARGE. DR. KEY SAID PT CAN BE DISCHARGE TONIGHT. TOLD THAT NEEDS COUNSELOR DORMITORY TO TRANSFER PT SO DISCHARGE WILL BE TOMORROW.
[2020-10-07 20:39] VITALS: BP 124/63
[2020-10-07] MEDS: ATORVASTATIN 10 MG TABLET PO SCH (21:22)
[2020-10-07] MEDS: MELATONIN 3 MG TABLET PO SCH (21:22)
[2020-10-07] MEDS: DONEPEZIL 5 MG TABLET PO SCH (21:22)
[2020-10-08 04:31] VITALS: BP 108/43
--- NOTE | 2020-10-08 06:09 | NUR ---
PT SLEPT INTERMITTENTLY. TALKED WITH [facility] DIAGNOSTICIAN THAT [facility] AND [facility] LABORATORY DIAGNOSTICIAN IN THE MORNING WILL ASSIST IN DISCHARGING THE PT. PT GIVEN PRN MEDICATIONS ATIVAN AT 2319H FOR RESTLESNESS AND TYLENOL AT 2122H.PT TOLERATED IT WELL. PT IN NO ACUTE DISTRESS. IV INTACT. PRESCRIBED MEDICATION GIVEN AND PT TOLERATED IT WELL. SAFETY AND COMFORT PROVIDED. WILL ENDORSE TO INCOMING NURSE FOR CONTINUITY OF CARE.
--- NOTE | 2020-10-08 07:30 | NUR ---
Patient received in bed awake alert and oriented times 1. No sign of distress noted. Patient is on room air. No longer on isolated, test came back negative for scabies. Safety precautions are in place. Will continue to monitor.
--- NOTE | 2020-10-08 08:04 | NUR ---
Patient pulled out IV line. Plan is to discharge patient today. Will not restart line at this time. Will continue to monitor.
[2020-10-08] MEDS: DIVALPROEX 250 MG TABLET.DR PO SCH (08:50)
[2020-10-08] MEDS: QUETIAPINE FUMARATE 25 MG TABLET PO SCH (08:50)
[2020-10-08] MEDS: ASCORBIC ACID 500 MG TABLET PO SCH (08:50)
[2020-10-08] MEDS: ENSURE ENLIVE (VAN) 240 ML LIQUID PO SCH (08:51)
[2020-10-08 11:12] VITALS: BP 108/55
--- NOTE | 2020-10-08 13:40 | NUR ---
Patient discharge to [facility]. All belongings given and all paper sent with patient to facility. ID band removed. Pictures documented. All medications given as ordered.
[2020-10-11] MEDS ORDERED: PERMETHRIN 5% CREAM 60 GM TUBE TP SCH (09:00)
[2020-10-11] MEDS ORDERED: IVERMECTIN 3 MG TABLET PO SCH (20:00)
[2020-10-18] MEDS ORDERED: IVERMECTIN 3 MG TABLET PO ONE (20:00)
== END 2020-10-08 13:50 | DRG 640 ==
LOC: ER 19:49 → MEDSURG3 21:27
PROVIDERS: ADMIT Internal Medicine; ATTEND Internal Medicine
DX: E87.0 Hyperosmolality and hypernatremia (principal); N17.0 Acute kidney failure with tubular necrosis; G92 Toxic encephalopathy; F02.81 Dementia in other diseases classified elsewhere, unspecified severity, with behavioral disturbance; R62.7 Adult failure to thrive; G30.9 Alzheimer's disease, unspecified; Z20.822 Contact with and (suspected) exposure to COVID-19; E78.5 Hyperlipidemia, unspecified; E86.1 Hypovolemia; F20.9 Schizophrenia, unspecified; I10 Essential (primary) hypertension; F29 Unspecified psychosis not due to a substance or known physiological condition; L30.9 Dermatitis, unspecified; F39 Unspecified mood [affective] disorder; Z68.22 Body mass index [BMI] 22.0-22.9, adult; R21 Rash and other nonspecific skin eruption
CPT/HCPCS: 36415; 70030-TC; 71045; 83605; 83690; 83735; 84100; 85025; 85730; 88333-TC; 93005; A4663; G0378; J1200; J3490; Q0163; U0003